=== PATIENT | male | born 1985 | race Caucasian/White ===

== ENCOUNTER 2016-08-27 08:48 | Emergency (ER) | payer OTHER ==
[2016-08-27 09:36] VITALS: BP 142/89
== END 2016-08-27 10:08 | disposition home or self-care (01) ==
LOC: ED 08:48
DX: M54.42 Lumbago with sciatica, left side (principal); R03.0 Elevated blood-pressure reading, without diagnosis of hypertension
CPT/HCPCS: J1885

== ENCOUNTER 2017-06-18 05:35 | Emergency (ER) | payer OTHER ==
[~2017-06-18] VITALS: Ht 185.4 cm; Wt 146.5 kg
[2017-06-18 06:09] VITALS: Ht 185.4 cm; Wt 146.5 kg
[2017-06-18 06:51] VITALS: BP 172/102
== END 2017-06-18 06:51 | disposition home or self-care (01) ==
LOC: ED 05:35
DX: M10.071 Idiopathic gout, right ankle and foot (principal)
CPT/HCPCS: J1885